=== PATIENT | male | born 1995 | race Asian ===

== ENCOUNTER 2016-11-04 18:39 | Emergency (ER) | payer OTHER ==
--- NOTE | 2016-11-04 19:53 | EDPHY ---
H & P Stated Complaint: nose bleed- not bleeding now. HPI/ROS: CHIEF COMPLAINT: Nosebleed HISTORY OF PRESENT ILLNESS: Patient complains of spontaneous nose bleed of the right nostril is started at 6 :00 p.m.. This was from the right nostril lasted for 10-15 minutes. He has had nosebleeds in the past but this was more voluminous to him. He was concerned and called 911. He placed tissue in the nostril lean back. He did not apply any pressure to the nose. He was transported by EMS in the bleeding stopped in route as he was holding pressure. No chest pain. No difficulty breathing or swallowing. No headache. No trauma to the nose. No digital manipulation to the nose. No bleeding disorders. No anticoagulants. Does have a history of occasional nosebleeds that are easily stopped with pressure. He has not been evaluated by ENT. No other associated complaints or modifying factors REVIEW OF SYSTEMS: Ten systems reviewed and are negative unless otherwise noted in the HPI PAST MEDICAL HISTORY: Recurrent nosebleeds SOCIAL HISTORY: Nonsmoker. He is a student here at [employer] FAMILY HISTORY: Noncontributory EXAMINATION General Appearance: Alert, no distress Head: normocephalic, atraumatic Eyes: Pupils equal and round, no conjunctival pallor or injection ENT, Mouth: Mucous membranes moist. Airway is widely patent. There is dried blood around the right nare. No active bleeding. No blood in the posterior pharynx. The uvula is midline Neck: Normal inspection, supple, non-tender Respiratory: No retractions or distress Cardiovascular: Regular rate and rhythm. No murmur Skin: Warm and dry, no rash DIFFERENTIAL DIAGNOSES: Including but not limited to anterior epistaxis, posterior epistaxis, recurrent epistaxis, coagulopathy MDM: 7:45 p.m. Spontaneous right-sided epistaxis that resolved in route. No bleeding at this time. There is no bleeding the posterior pharynx. No blood thinners. No bleeding disorders that are known to him or his family no medications. No other digital manipulation. Discharged home with instructions to use saline spray [id number] in the nose to 3 times daily indefinitely. Also Afrin 3- 4 times daily for the next 2-3 days and stop. Follow up with ENT physician for definitive care. Apply pressure as demonstrated, and return to ER for return of bleeding. He is comfortable with this plan and discharged home stable condition with no bleeding. SUPERVISION: This patient was independently evaluated without direct examination by the attending physician. Case was discussed with attending physician. Source: Patient Exam Limitations: No limitations - Personal History Current Tetanus/Diphtheria Vaccine: Yes Current Tetanus Diphtheria and Acellular Pertussis (TDAP): Yes Tetanus Vaccine Date: last 10 years - Medical/Surgical History Hx Asthma: No Hx Chronic Respiratory Disease: No Hx Diabetes: No Hx Cardiac Disease: No Hx Renal Disease: No Hx Cirrhosis: No Hx Alcoholism: No Hx HIV/AIDS: No Hx Splenectomy or Spleen Trauma: No Other PMH: healthy per pt - Social History Smoking Status: Never smoked Constitutional: Initial Vital Signs Temperature (C) 98.1 F 11/04/16 18:40 Heart Rate 67 11/04/16 18:40 Respiratory Rate 18 11/04/16 18:40 Blood Pressure 123/88 H 11/04/16 18:40 O2 Sat (%) 97 11/04/16 18:40 O2 Delivery Mode Room Air Allergies/Adverse Reactions: Penicillins Allergy (Verified 11/04/16 18:46) Home Medications: Medication Instructions Recorded Oxymetazoline HCl [Afrin Nasal 1 spray EACHNARE BID #1 bottle 11/04/16 [place] (OTC)] Probiotic & Acidophilus Cap 11/04/16 Sodium Chloride [Saline Nasal Mist] 1 spray NS TID #1 btl 11/04/16 Departure - Departure Disposition: Home, Routine, Self-Care Clinical Impression: Epistaxis not due to trauma Condition: Good Instructions: Nosebleed (ED) Additional Instructions: 1. Afrin [id number] as prescribed on the bottle for no more than 3 days and then stop for 7 days. 2. Wbsz-pgw-rjzeoeb nasal saline spray. Use in the nose 3-4 times daily indefinitely 3. Follow up with ENT physician for definitive care 4. Apply pressure as demonstrated and return to the ER for return of epistaxis Referrals: Patient,NotPresent [Unknown] - As per Instructions Malathi Damico MD [Medical Doctor] - As per Instructions Prescriptions: Oxymetazoline HCl [Afrin Nasal [place] (OTC)] 1 spray EACHNARE BID #1 bottle Sodium Chloride [Saline Nasal Mist] 1 spray NS TID #1 btl
[2016-11-04 20:07] VITALS: BP 123/85; PULSE 78; RESP 16; TEMP 98.2; O2SAT 98
== END 2016-11-04 20:04 | disposition home or self-care (01) ==
DX: R04.0 Epistaxis (principal)

== ENCOUNTER 2017-05-19 06:54 | Observation (INO) | payer OTHER ==
[2017-05-19] MEDS ORDERED: HYDROmorphONE/DILAUDID 1 MG/ML INJ IVP ONE (07:38)
[2017-05-19] MEDS ORDERED: NS 1,000 ML IV ONE (07:38)
[2017-05-19 07:44] LABS: PLATELET COUNT 282 10^3/uL (150-400)
[2017-05-19] MEDS ORDERED: IOPAMIDOL (ISOVUE-300) 100 ML BTL ONE (07:54)
--- NOTE | 2017-05-19 08:06 | EDPHY ---
H & P Stated Complaint: Has upper abd discomfort since 4am after eating spicy foods; denies n/v/d Time Seen by Provider: 05/19/17 07:24 - Personal History Current Tetanus Diphtheria and Acellular Pertussis (TDAP): Yes Tetanus Vaccine Date: last 10 years - Medical/Surgical History Hx Asthma: No Hx Chronic Respiratory Disease: No Hx Diabetes: No Hx Cardiac Disease: No Hx Renal Disease: No Hx Cirrhosis: No Hx Alcoholism: No Hx HIV/AIDS: No Hx Splenectomy or Spleen Trauma: No Other PMH: healthy per pt - Social History Smoking Status: Never smoked Constitutional: Initial Vital Signs Temperature (C) 36.7 C 05/19/17 07:00 Heart Rate 77 05/19/17 07:00 Respiratory Rate 18 05/19/17 07:00 Blood Pressure 126/84 H 05/19/17 07:00 O2 Sat (%) 97 05/19/17 07:00 O2 Delivery Mode Room Air Allergies/Adverse Reactions: Penicillins Allergy (Unknown, Verified 05/19/17 07:04) Home Medications: Medication Instructions Recorded NK [No Known Home Meds] 05/19/17 Medical Decision Making - Diagnostics Imaging Results: Imaging Impressions Abdomen CT 05/19/17 07:38 Impression: Findings compatible with appendicitis. Findings discussed with Dallin Goode MD at 8:30 hour, 05/19/2017. Imaging: Discussed imaging studies w/ scallop raker Radiologist ED Course/Re-evaluation: CHIEF COMPLAINT: Abdominal pain HISTORY OF PRESENT ILLNESS: This patient is a 21 year old male complaining of generalized abdominal pain onset at 4am this morning. He woke to get a drink, and his pain began about 10- 15 minutes after getting up. Initially, his pain was cramping and localized to his right lower quadrant. Now, his discomfort is more diffuse but he endorses a sharp pain to his right lower quadrant. He indicates McBurney's point. Jarring movements do not make his discomfort worse. He did eat spicy food last night which can cause similar symptoms, but his symptoms this morning are more severe than they have been in the past. He states he had a similar pain in [place] about 10 years ago and was diagnosed with appendicitis. He did not undergo surgery at that time - medical intervention only. He denies fever, chills, nausea, vomiting , diarrhea, or other associated symptoms. REVIEW OF SYSTEMS: A 10 point review of systems was performed and is negative with the exception of the elements mentioned in the history of present illness. PHYSICAL EXAM: HR, BP, O2 Sat, RR. Temp noted General Appearance: Alert, well hydrated, appropriate, and non-toxic appearing. Head: Atraumatic without scalp tenderness or obvious injury Eyes: Pupils equal, round, reactive to light and accommodation, EOMI, no trauma , no injection. Ears: Clear bilaterally, no perforation, normal landmarks Nose: Atraumatic, no rhinorrhea, clear. Throat: There is no erythema or exudates, no lesions, normal tonsils, mucus membranes moist. Neck: Supple, 2+ carotid upstroke, nontender, no lymphadenopathy. Respiratory: No retractions, no distress, no wheezes, and no accessory muscle use. Lungs are clear to auscultation bilaterally. Cardiovascular: Regular rate and rhythm, no murmurs, rubs, or gallops. Bilateral carotid, radial, dorsalis pedis, and posterior tibial pulses intact. Good capillary refill all extremities. Gastrointestinal: McBurney's point tenderness. Abdomen is soft, non-distended, no masses, no rebound, no guarding, no peritoneal signs. Musculoskeletal: Normal active ROM of all extremities, atraumatic. Neurological: Alert, appropriate, and interactive. The patient has normal DTRs and non-focal cranial nerves, motor, sensory, and cerebellar exam. Skin: No rashes, good turgor, no nodules on palpation. Past medical history: Denies. Past surgical history: No prior abdominal surgeries. Family history: Noncontributory. Social history: Friend at bedside. Student at [employer]. Lives in [place]. DIFFERENTIAL DIAGNOSIS: The differential diagnosis for the patient's abdominal pain included but was not limited to appendicitis, cholecystitis, hernias, kidney stone, testicular torsion, gastritis, and urinary tract infection. MEDICAL DECISION MAKIN21 year old male presents with with RLQ pain and nausea. McBurney's point tenderness on exam. Plan for CT abdomen/pelvis to r/o appendicitis. IV established. Plan for labs including CBC, chemistries, liver/lipase, UA. Plan to administer 1L IV NS. The patient declines pain medication at this time and states his symptoms seem to be resolving. 08:[address] Salgado, radiologist. CT positive for appendicitis. Plan to administer 1gm IV Ertapenem. 08:[address] Oconnell, general surgeon. He will consult the patinet. Dr. Oconnell accepts admission for appendicitis and perioperative management. - Data Points Laboratory Results: Laboratory Results 05/19/17 07:22 18 07:22 05/19/17 05/19/17 07:22 07:22 WBC 12.48 10^3/uL H 10^3/uL (3.80-9.50) RBC 5.25 10^6/uL 10^6/uL (4.40-6.38) Hgb 15.1 g/dL g/dL (13.7-17.5) Hct 44.9 % % (40.0-51.0) MCV 85.5 fL fL (81.5-99.8) MCH 28.8 pg pg (27.9-34.1) MCHC 33.6 g/dL g/dL (32.4-36.7) RDW 12.8 % % (11.5-15.2) Plt Count 282 10^3/uL 10^3/uL (150-400) MPV 9.1 fL fL (8.7-11.7) Neut % (Auto) 72.4 % % (39.3-74.2) Lymph % (Auto) 18.5 % % (15.0-45.0) [place] % (Auto) 7.7 % % (4.5-13.0) Eos % (Auto) 0.8 % % (0.6-7.6) Baso % (Auto) 0.3 % % (0.3-1.7) Nucleat RBC Rel Count 0.0 % % (0.0-0.2) Absolute Neuts (auto) 9.03 10^3/uL H 10^3/uL (1.70-6.50) Absolute Lymphs (auto) 2.31 10^3/uL 10^3/uL (1.00-3.00) Absolute Monos (auto) 0.96 10^3/uL H 10^3/uL (0.30-0.80) Absolute Eos (auto) 0.10 10^3/uL 10^3/uL (0.03-0.40) Absolute Basos (auto) 0.04 10^3/uL 10^3/uL (0.02-0.10) Absolute Nucleated RBC 0.00 10^3/uL 10^3/uL (0-0.01) Immature Gran % 0.3 % % (0.0-1.1) Immature Gran # 0.04 10^3/uL 10^3/uL (0.00-0.10) Sodium 141 mEq/L mEq/L (135-145) Potassium 3.6 mEq/L mEq/L (3.5-5.2) Chloride 105 mEq/L mEq/L (97-110) Carbon Dioxide 25 mEq/l mEq/l (22-31) Anion Gap 11 mEq/L mEq/L (8-16) BUN 21 mg/dL mg/dL (7-23) Creatinine 1.1 mg/dL mg/dL (0.7-1.3) Estimated GFR > 60 Glucose 98 mg/dL mg/dL (70-100) Calcium 9.8 mg/dL mg/dL (8.5-10.4) Total Bilirubin 0.4 mg/dL mg/dL (0.1-1.4) Conjugated Bilirubin 0.3 mg/dL mg/dL (0.0-0.5) Unconjugated Bilirubin 0.1 mg/dL mg/dL (0.0-1.1) AST 16 IU/L L IU/L (17-59) ALT 33 IU/L IU/L (21-72) Alkaline Phosphatase 61 IU/L IU/L (38-126) Total Protein 7.6 g/dL g/dL (6.3-8.2) Albumin 4.4 g/dL g/dL (3.5-5.0) Lipase 49 IU/L IU/L (23-300) Medications Given: Discontinued Medications Bupivacaine HCl (Sensorcaine 0.25% Sdv) Confirm Administered Dose 30 ml .ROUTE .STK-MED ONE Stop: 05/19/17 11:12 Last Admin: 05/19/17 13:28 Dose: 30 ml Ertapenem (Invanz) 1 gm IVP EDNOW ONE PRN Reason: Protocol Stop: 05/19/17 08:31 Last Admin: 05/19/17 09:20 Dose: 1 gm Fentanyl (Sublimaze) 25 - 100 mcg IVP Q5M PRN PRN Reason: PACU, IMMEDIATE Pain control Stop: 05/19/17 14:22 Last Admin: 05/19/17 14:56 Dose: 50 mcg Hydromorphone HCl (Dilaudid) 0.5 mg IVP EDNOW ONE Stop: 05/19/17 07:39 Last Admin: 05/19/17 10:16 Dose: Not Given Sodium Chloride (Ns) 1,000 mls @ 0 mls/hr IV EDNOW ONE; Wide Open PRN Reason: Protocol Stop: 05/19/17 07:39 Last Admin: 05/19/17 07:48 Dose: 1,000 mls Lactated Ringer's (Lr) 1,000 mls @ 0 mls/hr IV ONCE ONE PRN Reason: KVO Stop: 05/19/17 11:39 Last Admin: 05/19/17 11:47 Dose: 1,000 mls Ondansetron HCl (Zofran) 4 mg IVP ONCE ONE Stop: 05/19/17 10:07 Last Admin: 05/19/17 10:17 Dose: 4 mg Departure - Departure Dis[facility] Acute Clinical Impression: Acute appendicitis Qualifiers: Acute appendicitis type: with localized peritonitis Qualified Code(s): K35.3 - Acute appendicitis with localized peritonitis Condition: Fair Report Scribed for: Dallin Goode Report Scribed by: Haley Orellana Date of Report: 05/19/17 Time of Report: 15:01
[2017-05-19] MEDS ORDERED: ERTAPENEM 1 GM VIAL IVP ONE (08:30)
--- NOTE | 2017-05-19 09:48 | PDCONSULT ---
Nut Feeder Note: CC: abd pain HPI: 21 y/o male with abd pain starting this AM at 4:00. He reports pain in the RLQ with anorexia/mild nausea, but no emesis or diarrhea. He was seen in the ED by Dr. Crews and surgical consultation was requested after a CT showed appendicitis. 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 Informed consent was obtained. Vick Oconnell MD, FACS
[2017-05-19] MEDS ORDERED: HYDROmorphONE/DILAUDID 1 MG/ML INJ IVP PRN (09:50)
[2017-05-19] MEDS ORDERED: LR 1,000 ML IV SCH (10:00)
[2017-05-19] MEDS ORDERED: ONDANSETRON 4 MG/2 ML VIAL IVP ONE (10:06)
[2017-05-19] MEDS ORDERED: ERTAPENEM 1 GM VIAL IV ONE (10:47)
[2017-05-19] MEDS ORDERED: BUPIVACAINE 0.25% 30 ML SDV ONE (11:11)
[2017-05-19] MEDS ORDERED: LR 1,000 ML IV ONE (11:38)
[2017-05-19] MEDS ORDERED: ERTAPENEM 1 GM VIAL ONE (11:53)
[2017-05-19] MEDS ORDERED: PROPOFOL/EMULSION 500 MG/50 ML BOTTLE IV ONE (12:55)
[2017-05-19] MEDS ORDERED: MIDAZOLAM 2 MG/2 ML VIAL ONE (12:55)
[2017-05-19] MEDS ORDERED: fentaNYL 100 MCG/2 ML INJ ONE ×2 (13:06→14:20)
[2017-05-19] MEDS ORDERED: MEPERIDINE 25 MG/ML SYR IVP PRN (13:21)
[2017-05-19] MEDS ORDERED: PROMETHAZINE HCL 25 MG/ML INJ IVP PRN (13:21)
[2017-05-19] MEDS ORDERED: METOCLOPRAMIDE 10 MG/2 ML VIAL IVP PRN (13:21)
[2017-05-19] MEDS ORDERED: OXYCODONE/APAP 5/325 TAB PO PRN (13:21)
[2017-05-19] MEDS ORDERED: HYDROCODONE/APAP 5/325 TAB PO PRN ×2 (13:21→14:13)
[2017-05-19] MEDS ORDERED: DEXAMETHASONE 4 MG/ML VIAL IVP PRN (13:21)
[2017-05-19] MEDS ORDERED: ONDANSETRON 4 MG/2 ML VIAL IVP PRN (13:21)
[2017-05-19] MEDS ORDERED: ACETAMINOPHEN 500 MG TAB PO PRN (13:21)
[2017-05-19] MEDS ORDERED: NALOXONE HCL 0.4 MG/ML INJ IVP PRN (13:21)
--- NOTE | 2017-05-19 13:21 | PDANEPAE ---
ANE Past Medical History - Pulmonary History Hx Oxygen in Use at Home: No Hx Sleep Apnea: No Sleep Apnea Screening Result - Last Documented: Negative - Endocrine History Hx Diabetes: No ANE Review of Systems Review of Systems: ANE Patient History - Allergies Allergies/Adverse Reactions: Penicillins Allergy (Unknown, Verified 05/19/17 07:04) - Home Medications Home Medications: NK [No Known Home Meds] 05/19/17 [Last Taken Unknown] - NPO status NPO Since - Liquids (Date): 05/19/17 NPO Since - Liquids (Time): 05:00 NPO Since - Solids (Date): 05/18/17 NPO Since - Solids (Time): 20:00 - Smoking Hx Smoking Status: Never smoked ANE Labs/Vital Signs - Labs Result Diagrams: 05/19/17 07:22 05/19/17 07:22 - Vital Signs Blood Pressure: 115/79 Heart Rate: 65 Respiratory Rate: 14 O2 Sat (%): 97 Height: 175.26 cm Weight: 79.379 kg ANE Physical Exam - Airway Neck exam: FROM Mallampati Score: Class 1 Mouth exam: normal dental/mouth exam - Pulmonary Pulmonary: no respiratory distress, no rales or rhonchi, clear to auscultation - Cardiovascular Cardiovascular: regular rate and rhythym, no murmur, rub, or gallop - ASA Status ASA Status: I, E ANE Anesthesia Plan Anesthesia Plan: general endotracheal anesthesia
[2017-05-19] MEDS ORDERED: KETOROLAC 30 MG/1 ML SDV ONE (13:25)
[2017-05-19] MEDS ORDERED: ONDANSETRON 4 MG/2 ML VIAL ONE (13:25)
[2017-05-19] MEDS ORDERED: ROCURONIUM 50 MG/5 ML VIAL ONE (13:25)
[2017-05-19] MEDS ORDERED: METOCLOPRAMIDE 10 MG/2 ML VIAL ONE (13:25)
[2017-05-19] MEDS ORDERED: SUGAMMADEX SODIUM 200 MG/2 ML VIAL IVP ONE (13:25)
[2017-05-19] MEDS ORDERED: LIDOCAINE 2% 5 ML SDV ONE (13:25)
--- NOTE | 2017-05-19 14:00 | POSTOPPROG ---
Post Op Note Date of Operation: 05/19/17 Surgeon: Lemuel Oconnell (, FACS) Network Designer: Margy Zayas PAS-3 Anesthesiologist: Kelley Garay MD Anesthesia: GET(General Endotracheal) Pre-op Diagnosis: appendicitis Post-op Diagnosis: same Procedure: lap appendectomy Findings: early acute appendicitis Inf/Abcess present in the surg proc area at time of surgery?: No EBL: Minimal (5 ml) Complications: none Specimen(s): appendix
[2017-05-19] MEDS: fentaNYL 100 MCG/2 ML INJ IVP PRN ×2 (14:22→14:56)
[2017-05-19] MEDS ORDERED: HYDROmorphone HCL/NS 0.5 MG/ML SYR IVP PRN (14:30)
--- NOTE | 2017-05-19 14:32 | POSTANESTH ---
Post Anesthetic Evaluation Cardiovascular Status: Normal, Stable Respiratory Status: Normal, Stable Level of Consciousness/Mental Status: Alert and Oriented, Mildly Sleepy, Arousable Pain Control: Adequate, Prn Tx Ordered Nausea/Vomiting Control: Adequate, Prn Tx Ordered Complications Possibly Related to Anesthesia: None Noted
--- NOTE | 2017-05-19 14:50 | GOP ---
[f rep st] OPERATIVE REPORT DATE OF OPERATION: 05/19/2017 SURGEON: Lemuel Oconnell MD [employer] JOURNALIST: MATEO Valero-3. ANESTHESIA: General endotracheal. ANESTHESIOLOGIST: Leeann Garay MD. PREOPERATIVE DIAGNOSIS: Acute appendicitis. POSTOPERATIVE DIAGNOSIS: Acute appendicitis. PROCEDURE PERFORMED: Laparoscopic appendectomy. FINDINGS: Early acute appendicitis. No evidence of perforation or gangrene. ESTIMATED BLOOD LOSS: 5 cc. DESCRIPTION OF PROCEDURE: After informed consent was obtained, the patient was brought to the operat ing room, placed under general anesthesia. The abdomen was prepped and draped in the usual fashion. Before proceeding, a time-out and identification of the patient was performed. 0.25% Marcaine was used to infiltrate all incision sites. A longitudinal incision was made through t he base of the umbilicus, and blunt dissection was carried out down to the abdominal wall. A penetra ting towel clamp was applied to the incision, and ventral traction was applied while a Veress needle was introduced into the peritoneal cavity. Position was confirmed by saline infusion, and a pneumope ritoneum established with CO2 gas to a pressure of 15 mmHg. The Veress needle was withdrawn and repl aced with a 5 mm bladeless trocar. A 0-degree scope was introduced and the peritoneal cavity was vis ualized. Additional 5 mm port was placed in the suprapubic position, and a left lower quadrant 12 mm port was placed under direct visualization. This allowed introduction of atraumatic grasping forcep s, and the appendix was visualized and noted to be mildly inflamed and dilated. The mesoappendix was dispatched with the Harmonic scalpel, and the appendix from the cecum with a single firing of the CAMERON stapler. The appendix was retrieved through the left lower quadrant port site. The oper ative field appeared hemostatic. The pneumoperitoneum was evacuated, after the left lower quadrant p ort site was closed with a transfascial closure needle and 0 Vicryl suture. The remaining ports were removed. Subcutaneous tissues were approximated with 3-0 Vicryl sutures. Skin of all incisions was closed with 4-0 Monocryl suture in a subcuticular fashion. Topical and sterile dressings were appli ed. Needle, sponge, and instrument count were correct. COMPLICATIONS: None. /[id number]/MODL
--- NOTE | 2017-05-19 16:33 | SOAPPROG ---
Downtime Inpatient MD Late Entry SOAP Note: Christy is resting comfortably but having some nausea. His surgical site is uncomplicated Imp: stable with post op nausea Rec: continue supportive care/IV [place] Oconnell MD, FACS
[2017-05-19] MEDS: ONDANSETRON 4 MG/2 ML VIAL IVP PRN ×2 (16:49→21:34)
[2017-05-19] MEDS: SENNOSIDES/DOCUSATE SODIUM TAB PO SCH (21:37)
[2017-05-19] MEDS: IBUPROFEN 600 MG TAB PO SCH (21:37)
[2017-05-19 22:53] VITALS: RESP 16
[2017-05-20] MEDS: IBUPROFEN 600 MG TAB PO SCH (06:19)
[2017-05-20 07:40] VITALS: BP 108/67; PULSE 72; TEMP 98; O2SAT 93
[2017-05-20] MEDS ORDERED: FLU VACC QS 2017-18 (3YR+)/PF 0.5 ML SYR (FLUARIX QUAD) IM ONE (07:52)
--- NOTE | 2017-05-20 08:10 | PDDCSUM ---
Discharge Summary Discharge Summary: DOA 05/19/17 DOD 05/20/17 DC Dx: acute appendicitis/post op nausea Procedure: lap appendectomy 05/19 DC meds: Ibuprofen 600 mg TID prn Senokot-S 1 po BID Course: uncomplicated lap appendectomy for acute appendicitis. PONV due to anesthesia and hydrocodone. Only took Ibuprofen past 14 hours with resolution of PONV. Patient instructed in diet, activity and wound care. FU my office 1-2 weeks Vick Oconnell MD, FACS
[2017-05-20] MEDS: SENNOSIDES/DOCUSATE SODIUM TAB PO SCH (08:43)
== END 2017-05-20 09:09 | disposition home or self-care (01) ==
LOC: F3E 10:25
PROVIDERS: ADMIT Surgery; ATTEND Surgery
PROC: 0DTJ4ZZ Resection of Appendix, Percutaneous Endoscopic Approach (ICD-10-PCS; principal; 2017-05-19 12:15)
DX: K35.80 Unspecified acute appendicitis (principal); Z23 Encounter for immunization
CPT/HCPCS: 44970; 74177; 90471; G0378; G0008; J1170; J1335; J1885; J2250; J2405; J2704; J2765; J3010; Q9967